=== PATIENT | female | born 1995 | race American Indian/Alaskan Native ===

== ENCOUNTER 2018-03-04 15:33 | Emergency (ER) | payer MEDICAID ==
[2018-03-04 15:47] VITALS: BMI 40.7
[2018-03-04 15:55] VITALS: BP 127/83; PULSE 82; RESP 18; TEMP 98.6; O2SAT 98
--- NOTE | 2018-03-04 16:11 | ED PDOC ---
Arrival/HPI - General Chief Complaint: Abdominal Pain Time Seen by Provider: 03/04/18 15:53 Historian: Patient - History of Present Illness Narrative History of Present Illness (Text): 03/04/18 16:03 22 year old female, with no significant past medical history, presents to the Emergency department complaining of lower abdominal skin wall discomfort, redness and discharge since yesterday. Patient informs worsening discomfort associated with skin burning, making it difficult to ambulate. Patient denies any change in clothing or beauty products and informs good hygiene compliance. Patient denies any itching, back pain, abdominal pain, leg pain, fever, chills, nausea, vomiting, diarrhea, vaginal bleeding, hematuria, urinary output changes , chest pain, shortness of breath or any other complaints. Patient informs her last menstrual cycle was 2 weeks ago. Additionally, patient informs changing her job recently which is physically demanding. PMD: Dr. Blount Time/Duration: 24 hours Symptom Onset: Sudden Symptom Course: Worsening Quality: Aching, Burning Activities at Onset: Light Context: Walking Past Medical History - Provider Review Nursing Documentation Reviewed: Yes - Psychiatric Hx Substance Use: No - Anesthesia Hx Anesthesia: No Family/Social History - Physician Review Nursing Documentation Reviewed: Yes Family/Social History: No Known Family HX Smoking Status: Never Smoked Hx Alcohol Use: No Hx Substance Use: No Allergies/Home Meds Allergies/Adverse Reactions: Allergies No Known Allergies Allergy (Verified 03/04/18 15:55) Review of Systems - Physician Review All systems were reviewed & negative as marked: Yes - Review of Systems Constitutional: Normal. absent: Fevers Eyes: Normal ENT: Normal Respiratory: Normal. absent: SOB Cardiovascular: Normal. absent: Chest Pain Gastrointestinal: Normal. absent: Abdominal Pain, Diarrhea, Nausea, Vomiting Genitourinary Female: Normal. absent: Hematuria, Urine Output Changes, Vaginal Bleeding Musculoskeletal: Normal Skin: Other (lower abdominal skin wall discomfort, redness and discharge) Neurological: Normal Endocrine: Normal Hemo/Lymphatic: Normal Psychiatric: Normal Physical Exam Vital Signs Reviewed: Yes Vital Signs Temp Pulse Resp BP Pulse Ox 03/04/18 15:47 98.6 F 82 18 127/83 98 Temperature: Afebrile Blood Pressure: Normal Pulse: Regular Respiratory Rate: Normal Appearance: Positive for: Well-Appearing, Non-Toxic, Comfortable Pain Distress: None Mental Status: Positive for: Alert and Oriented X 3 - Systems Exam Head: Present: Atraumatic, Normocephalic Pupils: Present: PERRL Extroacular Muscles: Present: EOMI Conjunctiva: Present: Normal Mouth: Present: Moist Mucous Membranes Neck: Present: Normal Range of Motion Respiratory/Chest: Present: Clear to Auscultation, Good Air Exchange. No: Respiratory Distress, Accessory Muscle Use Cardiovascular: Present: Regular Rate and Rhythm, Normal S1, S2. No: Murmurs Abdomen: No: Tenderness, Distention, Peritoneal Signs Back: Present: Normal Inspection Upper Extremity: Present: Normal Inspection. No: Cyanosis, Edema Lower Extremity: Present: Normal Inspection. No: Edema, Tenderness (No tenderness upon extremity elevation.) Neurological: Present: GCS=15, CN II-XII Intact, Speech Normal Skin: Present: Warm, Dry, Normal Color, Other (lower abdominal skin wall has red warmth tenderness but no palpable mass. Slight yellow drainage but no fluctuance.). No: Rashes Psychiatric: Present: Alert, Oriented x 3, Normal Insight, Normal Concentration Medical Decision Making ED Course and Treatment: 03/04/18 16:17 Impression: 22 year old female presents to the Emergency department for lower abdominal skin discomfort, redness and burning. Differential Diagnosis included but are not limited to: skin cellulitis vs. fungal infection, rule out abscess Plan: -- CT of Abdomen/Pelvis -- Urinalysis -- Blood Culture -- Toradol -- Reassess and disposition Progress Notes: 03/04/18 17:49 CT of Abdomen/Pelvis reviewed by radiologist, shows: No significant or acute findings to account for/ related to the clinical presentation. No drainable collection, fistulous tract or other pathologic process. 03/04/18 17:52 Patient treated with Bactrim PO. CT reviewed and no abscess. Results explained to the patient. Patient given Rx Bactrim, Hydrocortizone cream 1%, and Clotrimazole cream for the INtertrigo infection. Also given textrix cream. - Lab Interpretations Lab Results: 03/04/18 16:00 03/04/18 16:00 Lab Results 03/04/18 16:00: Sodium 142, Potassium 3.9, Chloride 105, Carbon Dioxide 26, Anion Gap 16, BUN 5 L, Creatinine 0.5 L, Est GFR ( Amer) > 60, Est GFR ( Non-Af Amer) > 60, Random Glucose 93, Calcium 9.8 03/04/18 16:00: Urine Color Yellow, Urine Appearance Slight-cloudy, Urine pH 6.0 , Ur Specific [place] >= 1.030, Urine Protein 100 H, Urine Glucose (UA) Negative , Urine Ketones Negative, Urine Blood Large H, Urine Nitrate Negative, Urine Bilirubin Negative, Urine Urobilinogen 0.2, Ur Leukocyte Esterase Negative, Urine RBC 0 - 2, Urine WBC Negative, Ur Epithelial Cells 4 - 5 03/04/18 16:00: WBC 9.2, RBC 5.06, Hgb 13.1, Hct 40.0, MCV 79.1 L, MCH 25.9, MCHC 32.8, RDW 15.0 H, Plt Count 343, MPV 10.4, Gran % 48.4 L, Lymph % (Auto) 43.2 H, [place] % (Auto) 6.1 H, Eos % (Auto) 2.1, Baso % (Auto) 0.2, Gran # 4.43, Lymph # (Auto) 4.0 H, [place] # (Auto) 0.6, Eos # (Auto) 0.2, Baso # (Auto) 0.02 - RAD Interpretation Radiology Orders: 03/04/18 16:02 ABD & PELVIS IV CONTRAST ONLY [CT] Stat - Medication Orders Current Medication Orders: Discontinued Medications Ketorolac Tromethamine (Toradol) 30 mg IVP STAT STA Stop: 03/04/18 16:04 Last Admin: 03/04/18 16:18 Dose: 30 mg [facility] Pain Assessment Document 03/04/18 16:18 SS (Rec: 03/04/18 16:21 SS [id number]) Pain Reassessment Is this a pain reassessment? No Sleep Is patient sleeping during reassessment? No Presence of Pain Presence of Pain Yes Pain Scale Used Pain Scale Used Numeric Location Upper or Lower Lower Pain Location Body Site Abdomen Description Description Constant Intensity of Pain at present 7 Pain Behavior Facial Grimacing IVP Administration Document 03/04/18 16:18 SS (Rec: 03/04/18 16:21 SS [id number]) Charges for Administration # of IVP Administrations 1 Re-Assess: [facility] Pain Assessment Document 03/04/18 17:18 SS (Rec: 03/04/18 17:21 SS [id number]) Pain Reassessment Is this a pain reassessment? Yes Presence of Pain Presence of Pain No - Scribe Statement The provider has reviewed the documentation as recorded by the Jermaineibe Serena Barr. All medical record entries made by the Jermaineibe were at my direction and personally dictated by me. I have reviewed the chart and agree that the record accurately reflects my personal performance of the history, physical exam, medical decision making, and the department course for this patient. I have also personally directed, reviewed, and agree with the discharge instructions and disposition. Disposition/Present on Arrival - Present on Arrival Any Indicators Present on Arrival: No History of DVT/PE: No History of Uncontrolled Diabetes: No Urinary Catheter: No History of Decub. Ulcer: No History Surgical Site Infection Following: None - Disposition Have Diagnosis and Disposition been Completed?: Yes Diagnosis: Abdominal wall cellulitis, Intertrigo Disposition: HOME/ ROUTINE Disposition Time: 17:54 Patient Plan: Discharge Patient Problems: Current Active Problems Problem Status Onset Abdominal wall cellulitis Acute Intertrigo Acute Condition: IMPROVED Discharge Instructions (ExitCare): Cellulitis (ED) Additional Instructions: [place], thank you for letting us take care of you today. Your provider was Dr. Farris. You were treated for Intertriginous Cellulitis, Fungal Skin Infection. The emergency medical care you received today was directed at your acute symptoms. If you were prescribed any medication, please fill it and take as directed. It may take several days for your symptoms to resolve. Return to the Emergency Department if your symptoms worsen, do not improve, or if you have any other problems. Please contact your doctor or call one of the physicians/clinics you have been referred to that are listed on the Patient Visit Information form that is included in your discharge packet. Bring any paperwork you were given at discharge with you along with any medications you are taking to your follow up visit. Our treatment cannot replace ongoing medical care by a primary care provider (PCP) outside of the emergency department. Thank you for allowing the [facility] [employer] team to be part of your care today. If you had an X-Ray or CT scan: A Radiologist will review the ED reading if any change in treatment is needed we will contact you. If you had a blood, urine, or wound culture: It will take several days for the results, if any change in treatment is needed we will contact you. If you had an STI test: It will take 48 hours for the results. Please call after 1 week if you have not heard back. Prescriptions: Clotrimazole 1% Cream [Lotrimin 1%] 1 gm TP BID #1 tube Hydrocortisone 1% Cream [Cortizone 1% Cream] 1 appl TP BID #1 tube Protectives Combination No.2 [Tetrix] 90 gm TP BID 14 Days cream..g. Sulfamethoxazole/Trimethoprim [Bactrim DS 800 mg-160 mg] 1 tab PO Q12 #20 tab [facility] - Follow up with primary Forms: [facility] (Danish), WORK NOTE
[2018-03-04 16:27] LABS: BASO # 0.02 K/mm3 (0.0-2.0); BASO % 0.2 % (0.0-3.0); EOS # 0.2 (0.0-0.7); EOS % 2.1 % (1.5-5.0); GRAN # 4.43 (1.4-6.5); GRAN % 48.4 % (50.0-68.0); HEMOGLOBIN 13.1 g/dL (12.0-16.0); LYMPH % 43.2 % (22.0-35.0); MEAN CELL VOLUME 79.1 fl (80.0-105.0); MEAN CORPUSCULAR HEMOGLOBIN 25.9 pg (25.0-35.0); MEAN CORPUSCULAR HGB CONC 32.8 g/dl (31.0-37.0); MEAN PLATELET VOLUME 10.4 fl (7.0-11.0); MONO # 0.6 (0.1-0.6); MONO % 6.1 % (1.0-6.0); RBC 5.06 10^6/uL (3.5-6.1); WHITE BLOOD COUNT 9.2 10^3/ul (4.5-11.0)
[2018-03-04 16:28] LABS: URINE BILIRUBIN NEGATIVE (NEGATIVE); URINE BLOOD LARGE (NEGATIVE); URINE GLUCOSE (UA) NEGATIVE (NEGATIVE); URINE LEUKOCYTE ESTERASE NEGATIVE Leu/uL (NEGATIVE); URINE PROTEIN 100 mg/dL (<30 mg/dL); URINE UROBILINOGEN 0.2 E.U./dL (<1 E.U./dL)
[2018-03-04 16:29] LABS: URINE APPEARANCE SLIGHT-CLOUDY (CLEAR); URINE COLOR YELLOW (YELLOW)
[2018-03-04 16:36] LABS: URINE RBC 0 - 2 /hpf (0-2); URINE WBC NEGATIVE /hpf (0-6)
[2018-03-04 16:37] LABS: BLOOD UREA NITROGEN 5 mg/dL (7-21); CALCIUM 9.8 mg/dL (8.4-10.5); GFR AFRICAN-AMERICAN > 60; GFR NON-AFRICAN AMERICAN > 60
[2018-03-04] MEDS ORDERED: Iohexol 350 MG/100 ML VIAL ONE (17:10)
--- NOTE | 2018-03-04 17:43 | CT ---
PROCEDURE: CT Abdomen and Pelvis with contrast HISTORY: lower abdominal wall redness/pus, assess for abscess. Negative test (concurrent with this examination). COMPARISON: None. TECHNIQUE: Contrast dose: 100 cc Omnipaque 350 Radiation dose: Total exam DLP = 1295.45 mGy-cm. This CT exam was performed using one or more of the following dose reduction techniques: Automated exposure control, adjustment of the mA and/or kV according to patient size, and/or use of iterative reconstruction technique. FINDINGS: LOWER THORAX: Unremarkable. LIVER: Hepatic steatosis. All fatty sparing right hepatic lobe adjacent to the falciform ligament. No focal masses. No intrahepatic bile duct dilatation or perihepatic ascites. GALLBLADDER AND BILE DUCTS: Unremarkable. PANCREAS: Unremarkable. No gross lesion or ductal dilatation. SPLEEN: Unremarkable. ADRENALS: Unremarkable. No mass. KIDNEYS AND URETERS: Unremarkable. No hydronephrosis. No solid mass. VASCULATURE: Unremarkable. No aortic aneurysm. BOWEL: Unremarkable. No obstruction. No gross mural thickening. APPENDIX: Normal appendix. PERITONEUM: Unremarkable. No free fluid. No free air. LYMPH NODES: Unremarkable. No enlarged lymph nodes. BLADDER: Unremarkable. REPRODUCTIVE: Intrauterine contraceptive device (IUD) identified BONES: No acute fracture. OTHER FINDINGS: None. IMPRESSION: No significant or acute findings to account for/ related to the clinical presentation. No drainable collection, fistulous tract or other pathologic process. Additional benign and/or incidental findings described above.
[2018-03-04] MEDS ORDERED: Tmp-Smz 800 mg-160 mg DS Tab PO STA (17:52)
== END 2018-03-04 18:04 | disposition home or self-care (01) ==
LOC: ED 15:33
DX: L03.311 Cellulitis of abdominal wall (principal); L30.4 Erythema intertrigo
CPT/HCPCS: 74177; 80048; 81001; 85025; 87040; 96374; 99283; J1885; Q9967